=== PATIENT | male | born 1990 | race African-American/Black ===

== ENCOUNTER 2016-11-16 08:26 | Emergency (ER) | payer MEDICAID ==
--- NOTE | 2016-11-16 08:48 | ED Physician Chart ---
Chief Complaint/HPI - Patient Information Date Seen:: 11/16/16 Time Seen:: 08:35 Chief Complaint:: Left Leg Pain History of Present Illness:: Onset x 2 days of Left Upper Leg pain after an injury 2 days [employer]; no calf pain, C/P, SOB, Abd. pain, A/N/V/D/C, fever, chills, paresthesias, weakness, dizziness , vertigo, H/As, S/T, Cough, urinary s/s; no gait changes; pt is fully active; Pt's last tetanus shot: < 5 years; UTD Allergies:: Allergies Allergy/AdvReac Type Severity Reaction Status Date / Time keflex Allergy Unknown Uncoded 12/12/13 22:20 Vitals:: Vital Signs - 8 hr 11/16/16 08:33 Temp 99.2 F HR 80 RR 21 BP 136/89 O2 Sat % 100 Historian:: Patient Review:: Nurse's Note Reviewed Review of Systems - Review of Systems General/Constitutional: Fever, Chills, No weight loss, No weakness, No diaphoresis, No edema, No loss of appetite Skin: No skin lesions, Rash, No bruising Head: No headache, No light-headedness Eyes: No loss of vision, No pain, No diplopia ENT: No earache, No nasal drainage, No sore throat, No tinnitus Neck: No neck pain, No swelling, No thyromegaly, No stiffness, No mass noted Cardio Vascular: No chest pain, No palpitations, No PND, No orthopnea, No edema Pulmonary: No SOB, Cough, No sputum, No wheezing GI: Nausea, Vomiting, Diarrhea, No pain, No melena, No hematochezia, Constipation, No hematemesis G/U: No dysuria, No frequency, No hematuria Musculoskeletal: Bone or joint pain, No back pain, No muscle pain Endocrine: No polyuria, No polydipsia Psychiatric: No prior psych history, No depression, No anxiety, No suicidal ideation Hematopoietic: No bruising, No lymphadenopathy Allergic/Immuno: No urticaria, No angioedema Neurological: No syncope, No focal symptoms, No weakness, No paresthesia, No headache, No seizure, No dizziness, No confusion, No vertigo Past Medical History - Past Medical History Past Medical History: No significant medical hx Family History: HTN Social History: Non Smoker, No Alcohol, No Drug Use, Single Surgical History: None Psychiatricy History: None Medication: Reviewed Family Medical History - Family Member Mother History Unknown: Yes Ethnicity: Non- Physical Exam - Physical Examination General/Constitutional: Awake, Well-developed, well-nourished, Alert, No distress, GCS 15, Non-toxic appearing, Ambulatory Head: Atraumatic Eyes: Lids, conjuctiva normal, PERRL, EOMI Skin: Nl inspection, No rash, No skin lesions, No ecchymosis, Well hydrated, No lymphadenopathy ENMT: External ears, nose nl, Nasal exam nl, Lips, teeth, gums nl Neck: Nontender, Full ROM w/o pain, No JVD, No nuchal rigidity, No bruit, No mass, No stridor Respiratory: Nl effort/Exclusion, Clear to Auscultation, No Wheeze/Rhonchi/Rales Cardio Vascular: RRR, No murmur, gallop, rubs, NL S1 S2 GI: No tenderness/rebounding/guarding, No organomegaly, No hernia, Normal BS's, Nondistended, No mass/bruits, No McBurney tenderness : No CVA tenderness Extremities: No tenderness or effusion, Full ROM, normal strength in all extremities, No edema, Normal digits & nails Other Extremities comments:: Left proximal Tibia/Fibula regional soft tissue tenderness with no loss of ROMs ; no ligament instability; DTRs: 2+ bilaterally; Gait: wnl; no calf tenderness; - Joyce's sign; good motor, tendon, and sensory functions; good NV functions Neuro/Psych: Alert/oriented, DTR's symmetric, Normal sensory exam, Normal motor strength, Judgement/insight normal, Mood normal, Normal gait, No focal deficits Misc: normal gait, Normal back, No paraspinal tenderness Labs/Radiology/EKG Results - Radiology Results Results: X-Rays: Negative for Fx/Dislocations ED Septic Shock - . Is Septic Shock (SBP<90, OR Lactate>4 mmol\L) present?: No - <6hrs of presentation: Vital Signs: Vital Signs - 8 hr 11/16/ 08:33 Temp 99.2 F HR 80 RR 21 BP 136/89 O2 Sat % 100 Reassessment (Disposition) - Reassessment Reassessment Condition:: Improved - Diagnosis Diagnosis:: Left Knee Sprains; Left Leg Sprains and Strains; Sprains and Strains; Left Leg/ Knee Pain - Aftercare/Follow up Instructions Aftercare/Follow-Up Instructions:: Counseled pt regarding lab results/diagnosis & need follow up, Refer to Discharge Instructions, Counseled pt & family regarding lab results/diagnosis & need follow up Medication Prescribed:: Rx: Motrin 400mg po qid prn pain - Patient Disposition Discharge/Transfer:: Home Condition at Disposition:: Stable, Improved (RTER prn if existing s/s reoccur and/or get worse and/or any other new s/s occur; X-Rays Instructions; Refer to Orthopedist/Sign Letterer DEBORAH; F/U with PMD in one day or prn; RTER prn if concerned)
--- NOTE | 2016-11-16 10:47 | Diagnostic Imaging Report ---
Left knee 3 views Indication: Trauma Comparison: none Findings: There is mild narrowing of the medial knee compartment. No evidence of acute fracture or joint effusion. No significant focal soft tissue swelling. Impression: No evidence of an acute fracture. In the setting of trauma, if clinical symptoms persist and there is continued concern for an occult fracture, follow up exams in 5-7 days is suggested.
--- NOTE | 2016-11-16 10:48 | Diagnostic Imaging Report ---
Left tibia and fibula 2 views Indication: Trauma Comparison: Left knee the same day Findings: No evidence of an acute fracture or dislocation. No significant focal soft tissue swelling. Impression: No evidence of an acute fracture. In the setting of trauma, if clinical symptoms persist and there is continued concern for an occult fracture, follow up exams in 5-7 days is suggested.
== END 2016-11-16 09:35 | disposition home or self-care (01) ==
LOC: ER 08:26
DX: S83.92XA Sprain of unspecified site of left knee, initial encounter (principal); Z88.1 Allergy status to other antibiotic agents; X58.XXXA Exposure to other specified factors, initial encounter; Y93.89 Activity, other specified; Y92.89 Other specified places as the place of occurrence of the external cause; Y99.8 Other external cause status
CPT/HCPCS: 73562-TC-LT; 73590-TC-LT; J1885; Z7502

== ENCOUNTER 2016-12-15 22:23 | Emergency (ER) | payer MEDICAID ==
--- NOTE | 2016-12-15 23:21 | ED Physician Chart ---
Chief Complaint/HPI - Patient Information Date Seen:: 12/15/16 Time Seen:: 23:15 Chief Complaint:: l shldr pain History of Present Illness:: pt here for pain and ltd rom of denis hung since midday today. pt says it has dislocated 3x in past and he thinks again today. he was reaching up to book shelf when pain began. I examined him and informed him I dont think its dislocated at which time his story abruptly changed and he claims to have reduced the dislocation on his own earlier, immediately after it happened. pt says he tried motrin earlier without relief. Allergies:: Allergies Allergy/AdvReac Type Severity Reaction Status Date / Time keflex Allergy Unknown Uncoded 12/12/13 22:20 Vitals:: Vital Signs - 8 hr 12/15/16 22:30 Temp 97.8 F HR 82 RR 19 BP 131/62 O2 Sat % 99 Historian:: Patient Review of Systems - Review of Systems General/Constitutional: No fever, No chills, No weight loss, No weakness, No diaphoresis, No edema, No loss of appetite Skin: No skin lesions, No rash, No bruising Head: No headache, No light-headedness Eyes: No loss of vision, No pain, No diplopia ENT: No earache, No nasal drainage, No sore throat, No tinnitus Neck: No neck pain, No swelling, No thyromegaly, No stiffness, No mass noted Cardio Vascular: No chest pain, No palpitations, No PND, No orthopnea, No edema Pulmonary: No SOB, No cough, No sputum, No wheezing GI: No nausea, No vomiting, No diarrhea, No pain, No melena, No hematochezia, No constipation, No hematemesis G/U: No dysuria, No frequency, No hematuria Musculoskeletal: Bone or joint pain (l shldr), No bone or joint pain, No back pain, No muscle pain Endocrine: No polyuria, No polydipsia Psychiatric: No prior psych history, No depression, No anxiety, No suicidal ideation Hematopoietic: No bruising, No lymphadenopathy Allergic/Immuno: No urticaria, No angioedema Neurological: No syncope, No focal symptoms, No weakness, No paresthesia, No headache, No seizure, No dizziness, No confusion, No vertigo Past Medical History - Past Medical History Past Medical History: Other (3x l shldr dislocation in past) Social History: No Alcohol Medication: Reviewed Family Medical History - Family Member Mother History Unknown: Yes Ethnicity: Non- Physical Exam - Physical Examination General/Constitutional: Awake, Well-developed, well-nourished, Alert, No distress, GCS 15, Non-toxic appearing, Ambulatory Other Gen/Cons comments:: muscular black male seems in nad. L shldr appears nrml to external exam. pt c/o pain w mvt. good pulses. color ok in limb. cap refill ok. Head: Atraumatic Eyes: Lids, conjuctiva normal, PERRL, EOMI Skin: Nl inspection, No rash, No skin lesions, No ecchymosis, Well hydrated, No lymphadenopathy ENMT: External ears, nose nl, Nasal exam nl, Lips, teeth, gums nl Neck: Nontender, Full ROM w/o pain, No JVD, No nuchal rigidity, No bruit, No mass, No stridor Respiratory: Nl effort/Exclusion, Clear to Auscultation, No Wheeze/Rhonchi/Rales Cardio Vascular: RRR, No murmur, gallop, rubs, NL S1 S2 GI: No tenderness/rebounding/guarding, No organomegaly, No hernia, Normal BS's, Nondistended, No mass/bruits, No McBurney tenderness : No CVA tenderness Extremities: No tenderness or effusion, Full ROM, normal strength in all extremities, No edema, Normal digits & nails Neuro/Psych: Alert/oriented, DTR's symmetric, Normal sensory exam, Normal motor strength, Judgement/insight normal, Mood normal, Normal gait, No focal deficits Misc: normal gait, Normal back, No paraspinal tenderness Labs/Radiology/EKG Results - Radiology Results Results: xray l shldr - no dislocation. possible ac separation. no fx. ED Septic Shock - . Is Septic Shock (SBP<90, OR Lactate>4 mmol\L) present?: No - <6hrs of presentation: Vital Signs: Vital Signs - 8 hr 12/15/ 22:30 Temp 97.8 F HR 82 RR 19 BP 131/62 O2 Sat % 99 Reassessment (Disposition) - Reassessment Reassessment Condition:: Unchanged - Diagnosis Diagnosis:: L shldr pain possible ac separation of L shldr suspected s/p L shldr dislocation and reduction earlier tonight - Aftercare/Follow up Instructions Aftercare/Follow-Up Instructions:: Counseled pt regarding lab results/diagnosis & need follow up Medication Prescribed:: rx (on pt req) ultracet 14 - Patient Disposition Discharge/Transfer:: Home Condition at Disposition:: Improved
--- NOTE | 2016-12-16 10:16 | Diagnostic Imaging Report ---
Left shoulder (3 views) HISTORY: Pain, trauma Normal bone density. No focal lesions. No fractures. No dislocation. Questionable minimal elevation of the distal clavicle related to the acromion process. Mild acromioclavicular separation cannot be excluded. IMPRESSION: 1. Questionable mild acromioclavicular separation 2. No other acute abnormalities
== END 2016-12-15 23:29 | disposition home or self-care (01) ==
LOC: ER 22:23
DX: M25.512 Pain in left shoulder (principal); Z88.1 Allergy status to other antibiotic agents
CPT/HCPCS: 73030-TC-LT; Z7502

== ENCOUNTER 2017-03-11 14:00 | Emergency (ER) | payer MEDICAID ==
[2017-03-11] MEDS ORDERED: Sodium Chloride 0.9% 2,000 ML IV ONE (14:47)
--- NOTE | 2017-03-11 15:01 | ED Physician Chart ---
ED Chief Complaint/HPI - Patient Information Date Seen:: 03/11/17 Time Seen:: 14:30 Chief Complaint:: abdominal pain, vomiting and diarrhea History of Present Illness:: Patient had onset this morning of epigastric pain. He vomited 4 times and had many times watery diarrhea. Allergies:: Allergies Allergy/AdvReac Type Severity Reaction Status Date / Time keflex Allergy Unknown Uncoded 12/12/13 22:20 Vitals:: Vital Signs - 8 hr 03/11/17 14:10 Temp 98.8 F HR 66 RR 14 BP 121/50 O2 Sat % 98 Historian:: Patient Review:: Nurse's Note Reviewed ED Review of Systems - Review of Systems General/Constitutional: No fever, No chills Skin: No skin lesions Head: No headache Eyes: No loss of vision ENT: No earache Neck: No neck pain Cardio Vascular: No chest pain, No palpitations Pulmonary: No SOB GI: Nausea, Vomiting, Diarrhea G/U: No dysuria Musculoskeletal: Bone or joint pain Endocrine: No polyuria, No polydipsia Psychiatric: No prior psych history Hematopoietic: No bruising Allergic/Immuno: No urticaria Neurological: No syncope ED Past Medical History - Past Medical History Past Medical History: No significant medical hx Family History: Diabetes Melitus, HTN Social History: Smoker, Alcohol, Other (smokes one to 2 cigarettes a day and drinks about 12 beers per day) Surgical History: None Psychiatricy History: None Medication: None Family Medical History - Family Member Mother History Unknown: Yes Ethnicity: Non- ED Physical Exam - Physical Examination General/Constitutional: Well-developed, well-nourished, Alert, No distress Head: Atraumatic Eyes: Lids, conjuctiva normal, PERRL Skin: Nl inspection, No rash ENMT: External ears, nose nl, Lips, teeth, gums nl, Oropharynx nl Neck: No nuchal rigidity Respiratory: Nl effort/Exclusion, Clear to Auscultation Cardio Vascular: RRR GI: No organomegaly, No hernia, Nondistended, No mass/bruits, No McBurney tenderness Other GI comments:: Bowel sounds decreased; epigastric tenderness present : No CVA tenderness Extremities: No tenderness or effusion, Normal digits & nails Neuro/Psych: No focal deficits Misc: Normal back ED Labs/Radiology/EKG Results - Lab Results Results: Laboratory Results - last 24 hr 03/11/17 03/11/17 14:59 14:59 WBC 8.3 RBC 5.32 Hgb 15.7 Hct 46.7 D MCV 87.8 MCH 29.5 MCHC Differential 33.6 RDW 13.3 Plt Count 180 D MPV 9.0 Neutrophils % 81.4 H Lymphocytes % 12.6 L Monocytes % 4.5 Eosinophils % 0.8 Basophils % 0.7 Sodium 133 L Potassium 3.9 Chloride 102 Carbon Dioxide 25.8 Anion Gap 9.1 BUN 10 Creatinine 0.9 Est GFR ( Amer) > 60.0 Est GFR (Non-Af Amer) > 60.0 BUN/Creatinine Ratio 11.1 Glucose 95 Calcium 9.4 Magnesium 1.7 L ED Assessment - Assessment General Assessment: Plan was to give the patient 2 L of normal saline IV fluids as a bolus. However patient said he preferred oral rehydration with Pedialyte. I told him to drink a lot of Gatorade diluted half with water; eat bananas; return to regular diet as soon as possible avoiding greasy, oily and fatty foods; when improved to drink extra orange juice; also suggested taking a magnesium supplement. ED Septic Shock - . Is Septic Shock (SBP<90, OR Lactate>4 mmol\L) present?: No - <6hrs of presentation: Vital Signs: Vital Signs - 8 hr 03/11/17 14:10 Temp 98.8 F HR 66 RR 14 BP 121/50 O2 Sat % 98 ED Reassessment (Disposition) - Reassessment Reassessment Condition:: Improved - Diagnosis Diagnosis:: Viral gastroenteritis; hypomagnesemia - Aftercare/Follow up Instructions Aftercare/Follow-Up Instructions:: Refer to Discharge Instructions Medication Prescribed:: Zofran 4 mg oral disintegrating tablets #8 to take one every 4 hours as necessary for nausea and vomiting - Patient Disposition Discharge/Transfer:: Home Condition at Disposition:: Stable, Improved ED Discharge Plan - Patient Disposition Instructions: Viral Gastroenteritis Forms: Work Release Form
[2017-03-11 15:04] LABS: % BASOPHILS 0.7 % (0.0-2.0); % EOSINOPHILS 0.8 % (0.0-5.0); % LYMPHOCYTES 12.6 % (20.0-50.0); % MONOCYTES 4.5 % (2.0-10.0); % NEUTROPHILS 81.4 % (40.0-80.0); HEMOGLOBIN 15.7 gm/dL (12-16); MEAN CELL VOLUME 87.8 fl (80-99); MEAN CORPUSCULAR HEMOGLOBIN 29.5 pg (26.0-30.0); MEAN CORPUSCULAR HGB CONC 33.6 pg (28.0-36.0); NEUTROPHILE ABSOLUTE 6.7 Th/cmm (1.8-8.0); RED BLOOD COUNT 5.32 Mil/cmm (4.30-5.70); RED CELL DISTRIBUTION WIDTH 13.3 % (11.5-20.0); WHITE BLOOD COUNT 8.3 Th/cmm (4.8-10.8)
[2017-03-11 15:16] LABS: HEMATOCRIT 46.7 % (41.0-60); PLATELET COUNT 180 Th/cmm (150-400)
[2017-03-11 15:19] LABS: ANION GAP 9.1 (7.0-16.0); BUN - UREA NITROGEN 10 mg/dL (7-25); BUN/CREATININE RATIO 11.1; CALCIUM SERUM 9.4 mg/dL (8.6-10.3); CARBON DIOXIDE 25.8 mEq/L (21.0-31.0); CHLORIDE 102 mEq/L (98-107); CREATININE - SERUM 0.9 mg/dL (0.7-1.3); GLUCOSE 95 mg/dL (70-105); MAGNESIUM 1.7 mg/dL (1.9-2.7); POTASSIUM SERUM 3.9 mEq/L (3.5-5.1); SODIUM SERUM 133 mEq/L (136-145)
== END 2017-03-11 15:45 | disposition home or self-care (01) ==
LOC: ER 14:00
DX: A08.4 Viral intestinal infection, unspecified (principal); E83.42 Hypomagnesemia
CPT/HCPCS: 36415-UA; 80048-TC; 83735-TC; 85025-TC; Z7502

== ENCOUNTER 2017-05-31 09:02 | Emergency (ER) | payer SELFPAY | END 2017-05-31 11:00 | disposition left against medical advice (07) | LOC: ER 09:02 | DX: M25.519 Pain in unspecified shoulder (principal) ==